=== PATIENT | female | born 1995 ===

== ENCOUNTER 2017-05-22 06:28 | Inpatient (IN) ==
[2017-05-22] MEDS ORDERED: ONDANSETRON 4 MG/2 ML VIAL IV PRN (07:15)
[2017-05-22] MEDS ORDERED: MEPERIDINE 50 MG/1 ML VIAL IV PRN (07:15)
[2017-05-22] MEDS ORDERED: BUTORPHANOL 2 MG/ML VIAL IV PRN (07:15)
[2017-05-22 07:29] LABS: Basophils % 0.4 % (0.0-0.8); Eosinophils # 0.1 10*3/uL (0.0-0.87); Eosinophils % 1.8 % (0.00-10.9); Hematocrit 35.9 VOL% (35.7-47.0); Hemoglobin 12.1 GM/DL (12.0-16.0); Immature Granulocytes % 0.6 %; Immature Granulocytes Absolute 0.04 #; Lymphocytes # 1.8 10*3/uL (1.4-4.0); Mean Corpuscular HGB Conc 33.7 GM/DL (32-36); Mean Corpuscular Hemoglobin 29 PG (27-34); Mean Corpuscular Volume 86.7 FL (87-102); Mean Platelet Volume 11.4 FL (9.6-12.0); Monocytes # 0.5 10*3/uL (0.11-0.8); Monocytes % 6.8 % (1.7-12.7); Neutrophils # 4.4 10*3/uL (1.4-7.4); Neutrophils % 64.4 % (38.7-73.9); Platelet Count 158 T/CUMM (130-400); Red Blood Count 4.14 MC/CUMM (3.8-5.5); Red Cell Distribution Width 14.9 % (9.3-17.3); White Blood Count 6.8 T/CUMM (4-12)
[2017-05-22] MEDS: LACTATED RINGERS 1,000 ML IV SCH ×3 (07:47→20:58)
[2017-05-22] MEDS: OXYTOCIN/LR 20 UNIT/1,000 ML BAG IV SCH ×2 (07:48→20:27)
[2017-05-22 08:02] LABS: Alanine Aminotransferase 12 U/L (13-56); Albumin 2.4 G/DL (3.4-5.0); Alkaline Phosphatase 200 U/L (45-117); Aspartate Amino Transferase 15 U/L (0-37); Bilirubin,Total < 0.39 MG/DL (0.2-1.0); Blood Urea Nitrogen 6 MG/DL (7-18); Glucose 135 MG/DL (74-106); Osmolality,Calculated 274.7 MOS/KG (273-304); Sodium 138 MMOL/L (136-145); Total Protein 6.6 G/DL (6.4-8.3)
--- NOTE | 2017-05-22 09:30 | OB/GYN History & Physical ---
History of Present Illness Chief complaint: In for elective induction of labor due to term . History of present illness: Ms. Charlton is a 21 year old female 2 para 1 living 1. Her ЕКАТЕРИНА is estimated gestational age of 39 weeks. The patient received her care through the [facility] in the [place] [facility]. She received routine care, her course was uneventful. The patient presents today for elective induction of labor due to term . The risk and benefits of been thoroughly discussed with this patient and significant other, plan of care has been discussed with Dr. Gaitan and all parties are in agreement plan. The patient has had a previous vaginal delivery of a liveborn infant that weighed 6 pounds and 9 ounces, she reported no complications with that . labs: She is O+, RPR is nonreactive , rubella is immune, hepatitis B is negative, HIV is negative, GBS culture negative, review of systems is negative with exception of above. Home Medications Medication Instructions Recorded Confirmed Type Ferrous Sulfate [Iron] 1 tablet PO DAILY 05/22/17 05/22/17 History Pnv No.95/Ferrous Fum/Folic AC 1 tablet PO DAILY 05/22/17 05/22/17 History [ Tablet] Allergies Allergy/AdvReac Type Severity Reaction Status Date / Time cephalexin [From Keflex] AdvReac Mild RASH Verified 05/22/17 07:10 12 point system: reviewed and no additional remarkable complaints except as stated Medical,Surgical,& Family Hx - Medical History Medical History: noncontributory - Surgical History Surgical History: noncontributory - Family History Family History: Reports;: Family Cancer (dad), Family Diabetes (mother), Family Hypertension (dad) Denies;: Family Anesthesia Reaction, Family Heart Disease, Family Hematology , Family Psychiatric Problems, Family Stroke, Additional Family History - Social History Smoking Status: Never smoker Frequency of Alcohol Use: None Type of Drug Use: None Marital Status: Single Lives With:: Significant Other Functional capacity: independent ambulation 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 - Constitutional Vitals: Vital Signs Temp Pulse Resp BP Pulse Ox 05/22/17 07:38 97.8 F 83 20 122/58 100 General appearance: no acute distress - Antepartum / Post Antepartum Exam Cervix - Dilatation: 3 cm Effacement: 60% Station: -1 Rupture: Intact Presentation: Vertex Heart Rate: 140s Abdomen obstetrics: Present: bowel sounds normal Vagina: Present: normal moisture Uterus exam: Present: enlarged - Respiratory Respiratory exam: Present: clear to auscultation bilaterally - Cardiovascular Cardiovascular exam: Present: regular rate and rhythm - GI/Abdominal GI/Abdominal exam: Present: normal bowel sounds, soft - Extremities Exam Extremities exam: Present: normal inspection - Neurological Exam Neurological exam: Present: alert, oriented X3 - Psychiatric Psychiatric exam: Present: normal affect, normal mood - Skin Skin exam: Present: normal color, warm Assessment and Plan (1) 39 weeks gestation of Status: Acute Assessment and plan: Admit IV fluids IV Pitocin per protocol Artificial rupture membranes when appropriate Internal monitors if indicated Epidural anesthesia if desired Anticipate Current Visit: Yes Results - Labs CBC & BMP: 05/22/17 07:22 05/22/17 07:22
[2017-05-22] MEDS ORDERED: diphenhydrAMINE 50 MG/1 ML VIAL IV PRN ×2 (11:51)
[2017-05-22] MEDS ORDERED: PROMETHAZINE 25 MG/1 ML VIAL IM ONE (11:51)
[2017-05-22] MEDS ORDERED: ePHEDrine 50 MG/ML AMP IV PRN (11:51)
[2017-05-22] MEDS ORDERED: fentaNYL 2 MCG/ROPIV 0.2% EPID 150 ML EPIDURAL SCH (11:51)
[2017-05-22] MEDS ORDERED: hydrOXYzine HCL 25 MG/1 ML VIAL IM PRN (11:51)
[2017-05-22] MEDS ORDERED: CITRIC ACID/SODIUM CITRATE 30 ML UDCUP PO ONE (11:51)
[2017-05-22] MEDS ORDERED: ONDANSETRON 4 MG/2 ML VIAL IV ONE (11:51)
[2017-05-22] MEDS ORDERED: LACTATED RINGERS 1,000 ML IV ONE (11:51)
[2017-05-22] MEDS ORDERED: FAMOTIDINE 20 MG/2 ML VIAL IV ONE (11:51)
[2017-05-22 13:29] LABS: Apearance,Urine CLEAR (Clear); Bacteria,Urine Occasional /HPF (Few); Bilirubin,Urine Negative (Negative); Blood, Urine Negative (Negative); Glucose,Urine (UA) Negative (Negative); Ketones,Urine 5 mg/dL (Negative); Mucus,Urine Occasional /LPF (Occasional); Nitrite,Urine Negative (Negative); Protein,Urine Negative; RBC,Urine <1 /HPF (0-4); Squamous Epithelial Cell,Urine Occasional /HPF (0-10); Urine Color Yellow (Yellow); Urine Specific Gravity 1.009 (1.001-1.035); Urine Urobilinogen < 2.0 EU/DL (0.2-1.0); WBC,Urine <1 /HPF (0-6)
[2017-05-22] MEDS ORDERED: LIDOCAINE 1% 50 ML VIAL ONE (17:28)
[2017-05-22] MEDS ORDERED: miSOPROStol 200 MCG TABLET ONE (17:28)
[2017-05-22] MEDS ORDERED: ACETAMINOPHEN/CODEINE 300-30 MG TABLET PO PRN (18:43)
--- NOTE | 2017-05-22 18:47 | Event Note ---
HPI: Ms. Charlton presented to the labor department for elective induction of labor due to term . The risk and benefits were thoroughly discussed with this patient, plan of care was discussed with Dr. Gaitan and all parties were in agreement plan. Stage I: The patient was admitted and received IV fluids and IV Pitocin per protocol. Artificial rupture membranes performed clear fluid noted. The patient progressed in labor with a CAT 1 tracing. She had a few episodes of a CAT 2 tracing which was correct with oxygenation and position change. The patient continued to progress in labor with no additional complications. She had an uneventful course of labor. Stage II: The patient was complete and complained of pressure and desire to push. She pushed for approximately 20 minutes after which time the 's head was delivered. The mouth nose suctioned on the perineum. The remainder the infant was delivered 1820. A viable male was noted. Apgars were 9 at 1 minute and 9 at 5 minutes. weight was 7 pounds and 12 ounces. A cord pH was obtained and sent to the lab. The was placed on the mom's abdomen for skin to skin bonding. Stage III: A spontaneous delivery of a Peres placenta with a three-vessel cord noted. The placenta was further examined. Grossly intact. The vagina surface was inspected with a small second-degree perineal laceration noted. The laceration was repaired in the usual fashion. Epidural anesthesia remain in effect on repair. Estimated blood loss was approximately 150 cc. At the time of dictation mother and baby are both in stable condition.
[2017-05-22] MEDS ORDERED: BENZOCAINE 20%/MENTHOL 0.5% SPRAY 56 GM CAN TOP PRN (20:34)
[2017-05-22] MEDS ORDERED: oxyCODONE/ACETAMINOPHEN 5-325 MG TABLET PO PRN (20:34)
[2017-05-22] MEDS ORDERED: RHO(D) IMMUNE GLOBULIN 300 MCG SYRINGE IM ONE (20:34)
[2017-05-22] MEDS ORDERED: HYDROCORTISONE 2.5% RECTAL CREAM 30 GM TUBE TOP PRN (20:34)
[2017-05-22] MEDS ORDERED: WITCH HAZEL PADS 100/JAR TOP PRN (20:34)
[2017-05-22] MEDS ORDERED: BISACODYL 10 MG SUPP RECTAL PRN (20:34)
[2017-05-22] MEDS ORDERED: LANOLIN 50% CREAM 0.3 OZ TUBE TOP PRN (20:34)
[2017-05-22] MEDS ORDERED: ACETAMINOPHEN 325 MG TABLET PO PRN (20:34)
[2017-05-22] MEDS ORDERED: DIPH/TET/ACEL PERT BOOSTER VACCINE 0.5 ML VIAL IM ONE (20:34)
[2017-05-22] MEDS ORDERED: MEASLES/MUMPS/RUBELLA VACCINE 0.5 ML VIAL SUBCUT ONE (20:34)
[2017-05-22] MEDS: DOCUSATE SODIUM 100 MG CAPSULE PO SCH (20:55)
[2017-05-22] MEDS: IBUPROFEN 800 MG TABLET PO PRN (20:55)
[2017-05-23 07:03] LABS: Basophils % 0.2 % (0.0-0.8); Eosinophils # 0.1 10*3/uL (0.0-0.87); Eosinophils % 1.5 % (0.00-10.9); Hematocrit 30.6 VOL% (35.7-47.0); Hemoglobin 10.6 GM/DL (12.0-16.0); Immature Granulocytes % 0.3 %; Immature Granulocytes Absolute 0.03 #; Lymphocytes # 1.7 10*3/uL (1.4-4.0); Lymphocytes % 19.7 % (21.3-54.2); Mean Corpuscular HGB Conc 34.6 GM/DL (32-36); Mean Corpuscular Hemoglobin 30 PG (27-34); Mean Corpuscular Volume 87.2 FL (87-102); Mean Platelet Volume 11.2 FL (9.6-12.0); Monocytes # 0.8 10*3/uL (0.11-0.8); Monocytes % 9.3 % (1.7-12.7); Neutrophils # 6.1 10*3/uL (1.4-7.4); Platelet Count 136 T/CUMM (130-400); Red Blood Count 3.51 MC/CUMM (3.8-5.5); White Blood Count 8.8 T/CUMM (4-12)
[2017-05-23] MEDS: FERROUS SULFATE 325 MG TABLET PO SCH ×2 (08:24→20:47)
[2017-05-23] MEDS: DOCUSATE SODIUM 100 MG CAPSULE PO SCH ×2 (08:24→20:47)
--- NOTE | 2017-05-23 09:43 | Anesthesia Post-Op ---
Anesthesia Post OP - Post Ansesthetic Evaluation Patient seen in post op: Yes Resp: within normal limits CV: within normal limits Mental: within normal limits Temp: within normal limits [id number]: within normal limits Nausea and Vomiting: within normal limits Pain: within normal limits
--- NOTE | 2017-05-23 10:06 | OB/GYN Progress Note ---
Assessment and Plan (1) 39 weeks gestation of Status: Acute Assessment and plan: Admit IV fluids IV Pitocin per protocol Artificial rupture membranes when appropriate Internal monitors if indicated Epidural anesthesia if desired Anticipate Current Visit: Yes (2) Vaginal delivery Status: Acute Assessment and plan: Initiate routine orders. Current Visit: Yes VISUAL DESIGN LEAD - PN: Subj Interval history: Stable with no complaints. Bonding well with infant Exam VISUAL DESIGN LEAD - Constitutional Vitals: Vital Signs Temp Pulse Resp BP Pulse Ox 05/23/17 07:18 97.8 F 65 18 104/64 99 05/23/17 06:46 20 05/23/17 05:00 20 05/23/17 03:32 96.8 F L 75 18 89/47 99 05/23/17 03:00 20 05/23/17 02:00 20 05/23/17 00:00 97.7 F 74 18 98/42 99 05/22/17 20:40 96.8 F L 72 18 135/75 100 05/22/17 20:00 97.2 F L 76 20 115/60 100 05/22/17 16:00 97.3 F L 80 18 133/58 100 05/22/17 12:00 98 F 79 20 122/65 100 General appearance: no acute distress - Antepartum / Post Antepartum Exam Breast: bilateral: normal Abdomen obstetrics: Present: bowel sounds normal Vagina: Present: normal moisture, discharge (Light lochia rubra) Uterus exam: Present: enlarged (Fundus firm) - Respiratory Respiratory exam: Present: clear to auscultation bilaterally - Cardiovascular Cardiovascular exam: Present: regular rate and rhythm - GI/Abdominal GI/Abdominal exam: Present: normal bowel sounds, soft - Extremities Exam Extremities exam: Present: normal inspection - Back Exam Back exam: Present: normal inspection - Neurological Exam Neurological exam: Present: alert, oriented X3 - Psychiatric Psychiatric exam: Present: normal affect, normal mood - Skin Skin exam: Present: normal color, warm Results - Labs CBC & BMP: 05/23/17 06:37 05/22/17 07:22
[2017-05-23] MEDS: IBUPROFEN 800 MG TABLET PO PRN ×2 (10:31→23:32)
[2017-05-23] MEDS: oxyCODONE/ACETAMINOPHEN 5-325 MG TABLET PO PRN ×2 (10:32→23:32)
[2017-05-24 07:42] VITALS: BP 107/72
[2017-05-24] MEDS: DOCUSATE SODIUM 100 MG CAPSULE PO SCH (08:16)
[2017-05-24] MEDS: FERROUS SULFATE 325 MG TABLET PO SCH (08:16)
--- NOTE | 2017-05-24 09:59 | Discharge Summary ---
Hospital Course - Hospital Course Hospital Course: Ms. Charlton presented to the labor department for elective induction of labor due to term . She subsequently delivered a viable infant with no complications. She has followed a normal course and she has done well. Her bleeding is minimal with no odor. Her vital signs are stable. Her lab values are stable. She is bonding well with her infant. She is voiding without difficulty. She denies any discomfort in her legs. Contraception options has been discussed with this patient and she will decide on a method at her visit. She will be discharged home prescriptions for pain and a follow-up appointment in our office. Diagnosis - Discharge Diagnosis (1) 39 weeks gestation of Status: Acute (2) Vaginal delivery Status: Acute Specialty Discharge - Follow Up or Referrals Follow up with: Lay Gaitan MD [Physician] - (Follow-up in 6 weeks.) Discharge Plan - Discharge Data Disposition: Disch To Home/Self Care Condition at Discharge: Stable Discharge Diet: advance to your usual diet, regular diet Activity: resume usual activities as tolerated Hygiene: no restrictions Weight Bearing at Discharge: weight bear as tolerated Driving: no restrictions Contact your physician if you experience:: fever over 101, pain uncontrolled by pain medications - Discharge Medications New Ferrous Sulfate Tab [Feosol Original Tab] 325 mg PO BID #60 tablet Acetamin/Codeine 300-30 Tab [Tylenol/Codeine #3] 2 tablet PO Q4H PRN #30 tablet PRN Reason: Pain Mild (1-3) Ibuprofen Tab [Motrin Tab] 800 mg PO Q6H PRN #30 tablet PRN Reason: Pain Moderate (4-7) No Action Pnv No.95/Ferrous Fum/Folic AC [ Tablet] 1 tablet PO DAILY Ferrous Sulfate [Iron] 1 tablet PO DAILY - Follow Up or Referral Follow Up: Lay Gaitan MD [Physician] - - Forms/Instructions Instructions: Depression (GEN), Perineal Care (DC), Vaginal Delivery (DC), Bleeding (DC) Exam - Constitutional Vitals: Period Temp Pulse Resp BP Sys/White Pulse Ox Last 24 Hr 97 F-98.2 F 68-94 17-20 93-119/58-74 97-98 General appearance: normal weight - Head Head exam: Present: normal inspection - Neck Neck exam: Present: normal inspection - Respiratory Respiratory exam: Present: clear to auscultation bilaterally - Cardiovascular Cardiovascular exam: Present: regular rate and rhythm - GI/Abdominal GI/Abdominal exam: Present: normal bowel sounds - Extremities Exam Extremities exam: Present: normal inspection - Back Exam Back exam: Present: normal inspection - Neurological Exam Neurological exam: Present: alert, oriented X3 - Psychiatric Psychiatric exam: Present: normal affect, normal mood - Skin Skin exam: Present: normal color, warm DS: Provider Date of admission: 05/22/17 06:40 Primary care physician: Emilie Arciniega MD Attending physician on admission: Lay Gaitan MD Consults: 05/22/17 07:15 Consult to Anesthesiology [CONS] Routine Consulting Provider: Reason for Anesthesiology: Epidural Consult Comment: Epidural for pain managment 05/22/17 20:34 Consult to Upholsterer Inside [CONS] Routine Consult Upholsterer Inside: Breast Feeding Discharging clinician: Cecy Jang CNM Expected date of discharge: 05/24/17
== END 2017-05-24 13:15 | disposition home or self-care (01) | DRG 560 ==
LOC: N.LDOUT 06:28 → N.LD 06:36 → N.OB 20:33
PROVIDERS: ADMIT Obstetrics & Gynecology; ATTEND Obstetrics & Gynecology

== ENCOUNTER 2021-08-18 00:50 | Inpatient (IN) ==
[2021-08-18] MEDS ORDERED: BUTORPHANOL 2 MG/ML VIAL IV PRN (01:33)
[2021-08-18] MEDS ORDERED: ONDANSETRON 4 MG/2 ML VIAL IV PRN (01:33)
[2021-08-18] MEDS ORDERED: LACTATED RINGERS 500 ML IV PRN (01:33)
[2021-08-18] MEDS: LACTATED RINGERS 1,000 ML IV SCH ×3 (01:40→10:09)
[2021-08-18] MEDS: CLINDAMYCIN INJ 900 MG/50 ML PREMIX IV SCH ×2 (01:59→09:37)
[2021-08-18 02:06] LABS: Basophils % 0.3 % (0.0-0.8); Eosinophils # 0.1 10*3/uL (0.0-0.87); Eosinophils % 0.7 % (0.00-10.9); Hematocrit 36.1 VOL% (35.7-47.0); Hemoglobin 11.4 GM/DL (12.0-16.0); Immature Granulocytes % 0.6 %; Immature Granulocytes Absolute 0.04 #; Lymphocytes # 1.9 10*3/uL (1.4-4.0); Lymphocytes % 25.7 % (21.3-54.2); Mean Corpuscular HGB Conc 31.6 GM/DL (32-36); Mean Corpuscular Volume 89.4 FL (87-102); Mean Platelet Volume 11.7 FL (9.6-12.0); Monocytes % 9.4 % (1.7-12.7); Neutrophils % 63.3 % (38.7-73.9); Platelet Count 176 T/CUMM (130-400); Red Blood Count 4.04 MC/CUMM (3.8-5.5); Red Cell Distribution Width 16.1 % (9.3-17.3); White Blood Count 7.2 T/CUMM (4-12)
[2021-08-18 02:15] LABS: Alanine Aminotransferase 13 U/L (13-56); Albumin 2.4 G/DL (3.4-5.0); Alkaline Phosphatase 251 U/L (45-117); Aspartate Amino Transferase 17 U/L (0-37); Bilirubin,Total < 0.39 MG/DL (0.20-1.00); Blood Urea Nitrogen 13 MG/DL (7-18); Carbon Dioxide 23 MMOL/L (21-32); Estimated Glom Filtration Rate 138 ML/MIN; Glucose 78 MG/DL (74-106); Osmolality,Calculated 273.7 MOS/KG (273-304); Potassium 3.8 MMOL/L (3.5-5.1); Sodium 138 MMOL/L (136-145); Total Protein 6.5 G/DL (6.4-8.2)
[2021-08-18] MEDS: OXYTOCIN/LR 20 UNIT/1,000 ML BAG IV SCH ×2 (02:25→17:33)
[2021-08-18] MEDS: MEPERIDINE 50 MG/1 ML VIAL IV PRN ×2 (06:16→10:51)
[2021-08-18] MEDS ORDERED: FAMOTIDINE 20 MG/2 ML VIAL IV ONE (07:35)
[2021-08-18] MEDS ORDERED: ePHEDrine 50 MG/ML VIAL IV PRN (07:35)
[2021-08-18] MEDS ORDERED: LACTATED RINGERS 1,000 ML IV ONE (07:35)
[2021-08-18] MEDS ORDERED: CITRIC ACID/SODIUM CITRATE 30 ML UDCUP PO ONE (07:35)
[2021-08-18] MEDS ORDERED: NALOXONE 0.4 MG/ML VIAL IV PRN (07:35)
[2021-08-18] MEDS ORDERED: diphenhydrAMINE 50 MG/1 ML VIAL IV PRN ×2 (07:35)
[2021-08-18] MEDS ORDERED: LACTATED RINGERS 1,000 ML IV SCH (08:00)
[2021-08-18] MEDS ORDERED: fentaNYL 2 MCG/ROPIV 0.2% EPID 100 ML EPIDURAL SCH (08:00)
[2021-08-18] MEDS ORDERED: TRANEXAMIC ACID 1,000 MG/10 ML VIAL ONE (08:17)
[2021-08-18] MEDS ORDERED: OXYTOCIN/LR 20 UNIT/1,000 ML BAG IV ONE ×2 (08:17→18:09)
[2021-08-18] MEDS ORDERED: miSOPROStoL 200 MCG TABLET ONE (08:17)
[2021-08-18] MEDS ORDERED: SODIUM CHLORIDE 0.9% 0 ML IV ONE (08:17)
[2021-08-18] MEDS ORDERED: CARBOPROST TROMETHAMINE 250 MCG/ML AMP IM ONE (08:18)
[2021-08-18] MEDS ORDERED: METHYLERGONOVINE 0.2 MG/1 ML AMP ONE (08:18)
[2021-08-18] MEDS ORDERED: valACYclovir 500 MG TABLET PO SCH (09:00)
[2021-08-18 12:28] LABS: Bacteria,Urine Occasional /HPF (Few); Bilirubin,Urine Negative (Negative); Blood, Urine Small mg/dL (Negative); Glucose,Urine (UA) Negative (Negative); Ketones,Urine 5 mg/dL (Negative); Nitrite,Urine Negative (Negative); Protein,Urine Negative; RBC,Urine <1 /HPF (0-4); Squamous Epithelial Cell,Urine Occasional /HPF (0-10); Urine Appearance CLEAR (Clear); Urine Color Straw (Yellow); Urine Specific Gravity 1.004 (1.001-1.035); Urine Urobilinogen < 2.0 EU/DL (0.2-1.0)
[2021-08-18 15:14] LABS: Cord Arterial Blood HCO3 16.5 MMOL/L
[2021-08-18 15:17] LABS: Cord Venous Blood HCO3 18.7 MMOL/L; Cord Venous Blood PCO2 45.1 MMHG; Cord Venous Blood PO2 26.9
[2021-08-18] MEDS ORDERED: HYDROCORTISONE 2.5% RECTAL CREAM 30 GM TUBE TOP PRN (18:09)
[2021-08-18] MEDS ORDERED: BENZOCAINE 20%/MENTHOL 0.5% SPRAY 56 GM CAN TOP PRN (18:09)
[2021-08-18] MEDS ORDERED: ACETAMINOPHEN 325 MG TABLET PO PRN (18:09)
[2021-08-18] MEDS ORDERED: DIPH/TET/ACEL PERT BOOSTER VACCINE 0.5 ML VIAL IM ONE (18:09)
[2021-08-18] MEDS ORDERED: LANOLIN 50% CREAM 0.3 OZ TUBE TOP PRN (18:09)
[2021-08-18] MEDS ORDERED: BISACODYL 10 MG SUPP RECTAL PRN (18:09)
[2021-08-18] MEDS ORDERED: MEASLES/MUMPS/RUBELLA VACCINE 0.5 ML VIAL SUBCUT ONE (18:09)
[2021-08-18] MEDS ORDERED: RHO(D) IMMUNE GLOBULIN 300 MCG SYRINGE IM ONE (18:09)
[2021-08-18] MEDS ORDERED: oxyCODONE/ACETAMINOPHEN 5-325 MG TABLET PO PRN ×2 (18:09)
[2021-08-18] MEDS ORDERED: WITCH HAZEL PADS 100/JAR TOP PRN (18:09)
[2021-08-18] MEDS: IBUPROFEN 800 MG TABLET PO PRN (18:21)
[2021-08-18] MEDS: DOCUSATE SODIUM 100 MG CAPSULE PO SCH (20:34)
[2021-08-19] MEDS: IBUPROFEN 800 MG TABLET PO PRN ×4 (03:52→22:13)
[2021-08-19 05:48] LABS: Basophils % 0.2 % (0.0-0.8); Eosinophils # 0.1 10*3/uL (0.0-0.87); Eosinophils % 0.4 % (0.00-10.9); Hematocrit 29.9 VOL% (35.7-47.0); Hemoglobin 9.6 GM/DL (12.0-16.0); Immature Granulocytes % 0.9 %; Lymphocytes # 1.6 10*3/uL (1.4-4.0); Lymphocytes % 13.9 % (21.3-54.2); Mean Corpuscular HGB Conc 32.1 GM/DL (32-36); Mean Corpuscular Volume 89.5 FL (87-102); Mean Platelet Volume 11.8 FL (9.6-12.0); Monocytes % 7.9 % (1.7-12.7); Neutrophils % 76.7 % (38.7-73.9); Platelet Count 141 T/CUMM (130-400); Red Blood Count 3.34 MC/CUMM (3.8-5.5); Red Cell Distribution Width 16.5 % (9.3-17.3); White Blood Count 11.4 T/CUMM (4-12)
[2021-08-19] MEDS: DOCUSATE SODIUM 100 MG CAPSULE PO SCH ×3 (08:46→20:50)
[2021-08-20] MEDS: IBUPROFEN 800 MG TABLET PO PRN (07:14)
[2021-08-20 09:41] VITALS: BP 103/60
[2021-08-20] MEDS: DOCUSATE SODIUM 100 MG CAPSULE PO SCH (10:09)
== END 2021-08-20 14:15 | disposition home or self-care (01) | DRG 560 ==
LOC: N.LD 00:50 → N.OB 18:05
PROVIDERS: ADMIT Obstetrics & Gynecology; ATTEND Obstetrics & Gynecology